=== PATIENT | female | born 1990 | race Hispanic/Latino ===

== ENCOUNTER 2019-06-30 13:10 | Emergency (ER) | payer MEDICAID ==
--- NOTE | 2019-06-30 13:47 | Event Note ---
ED Screening Note ED Screening Note: This initial assessment/diagnostic orders/clinical plan/treatment(s) is/are subject to change based on patients health status, clinical progression and re- assessment by fellow clinical providers in the ED. Further treatment and workup at subsequent clinical providers discretion. Patient/guardian urged not to elope from the ED as their condition may be serious if not clinically assessed and managed. Initial orders include: 28 yo female states that she has intermittent abdominal pain for 2 weeks. She verbalizes that she took a urine test that was positive and that she had a miscarriage on Feb 26, 2019.
[2019-06-30 14:34] LABS: Bacteria,Urine 1+ /HPF (Negative); Bilirubin,Urine NEG (Negative); Blood,Urine NEG (Negative); Color,Urine Amber (Yellow); Mucus,Urine 3+ /HPF; Urobilinogen,Urine < 2.0 mg/dL (<2.0)
[2019-06-30] MEDS ORDERED: SODIUM CHLORIDE 0.9% 1000 ML 1,000 ML IV ONE (15:17)
[2019-06-30] MEDS ORDERED: cefTRIAXone/NS 1 GM/50 ML 1 GM/50 ML BAG IV ONE (15:17)
--- NOTE | 2019-06-30 15:18 | Emergency Department Report ---
Vomiting/Diarrhea - HPI Chief Complaint: Abdominal Pain Stated Complaint: LOWER ABD PAIN/N/V Time Seen by Provider: 06/30/19 14:01 Severity: mild Nausea/Vomiting Severity: Mild Diarrhea Severity: Mild Pain Severity: Mild Symptoms: Yes Able to Tolerate Fluids, No Watery Diarrhea, No Bloody diarrhea, No Fever, No Recent Unusual Foods, No Recent Untreated Water, No Recent use of Antibiotics, No Family w/ Similar Symptoms, No Contacts w/ Similar Symptoms, No Rash, No Hematuria, No Recent URI Symptoms Other History: 28 YO COMES TO ER CO N/V FOR SEVERAL DAYS. SHE TOOK 8 PREG TESTS AND ALL WERE POS; SHE COMES TO ER THINKING SHE IS PREG. NO VAG BLEED OR DC. NO PRIOR ED Review of Systems ROS: Stated complaint: LOWER ABD PAIN/N/V Other details as noted in HPI Comment: All other systems reviewed and negative ED Past Medical Hx - Past Medical History Previous Medical History?: Yes Additional medical history: PTSD, bipolar, depression anxiety - Surgical History Past Surgical History?: Yes Additional Surgical History: eye,, foot, gallbladder removal - Family History Family history: no significant - Social History Smoking Status: Current Every Day Smoker - Medications Home Medications: Home Medications Medication Instructions Recorded Confirmed Last Taken Type Nitrofurantoin Hall/M-Cryst 100 mg PO Q12HR #10 capsule 06/30/19 Unknown Rx [Macrobid CAP] Ondansetron [Zofran Odt] 4 mg PO Q8HR PRN #10 tab.rapdis 06/30/19 Unknown Rx Vomiting Diarrhea Exam - Exam General: Vital signs noted. No distress. Alert and acting appropriately. HEENT: No Pharyngeal Erythema, No Pharyngeal Exudates Neck: Yes Adenopathy Lungs: Yes Clear Lung Sounds Heart exam: Regular: Yes, Murmur: No, Tachycardia: No Abdomen: Tenderness: No, Peritoneal Signs: No, Distention: No, Hyperactive Bowel sounds: No Skin exam: Rash: No, Edema: No, Normal turgor: Yes Neurologic: Alert and oriented, no deficits. Musculoskeletal: Unremarkable. ED Course Vital Signs 06/30/19 13:22 Temperature 98.2 F Pulse Rate 60 Respiratory 18 Rate Blood Pressure 109/54 [Left] O2 Sat by Pulse 99 Oximetry ED Medical Decision Making - Lab Data Result diagrams: 06/30/19 15:11 06/30/19 15:11 - Radiology Data Radiology results: report reviewed, image reviewed - Medical Decision Making Vital Signs 06/30/19 13:22 Temperature 98.2 F Pulse Rate 60 Respiratory 18 Rate Blood Pressure 109/54 [Left] O2 Sat by Pulse 99 Oximetry Lab Results 06/30/19 06/30/19 06/30/19 Range/Units 15:11 15:11 15:11 WBC 8.5 (4.5-11.0) K/mm3 RBC 4.14 (3.65-5.03) M/mm3 Hgb 13.1 (10.1-14.3) gm/dl Hct 38.4 (30.3-42.9) % MCV 93 (79-97) fl MCH 32 (28-32) pg MCHC 34 (30-34) % RDW 12.9 L (13.2-15.2) % Plt Count 197 (140-440) K/mm3 Lymph % (Auto) 23.4 (13.4-35.0) % Hall % (Auto) 6.6 (0.0-7.3) % Eos % (Auto) 0.6 (0.0-4.3) % Baso % (Auto) 0.5 (0.0-1.8) % Lymph # 2.1 (1.2-5.4) K/mm3 Hall # 0.6 (0.0-0.8) K/mm3 Eos # 0.0 (0.0-0.4) K/mm3 Baso # 0.0 (0.0-0.1) K/mm3 Seg Neutrophils % 68.9 (40.0-70.0) % Seg Neutrophils # 6.1 (1.8-7.7) K/mm3 Sodium 137 (137-145) mmol/L Potassium 4.2 (3.6-5.0) mmol/L Chloride 102.9 (98-107) mmol/L Carbon Dioxide 21 L (22-30) mmol/L Anion Gap 17 mmol/L BUN 7 (7-17) mg/dL Creatinine 0.5 L (0.7-1.2) mg/dL Estimated GFR > 60 ml/min BUN/Creatinine Ratio 14 % Glucose 87 (65-100) mg/dL Calcium 9.1 (8.4-10.2) mg/dL Total Bilirubin 0.40 (0.1-1.2) mg/dL AST 14 (5-40) units/L ALT 11 (7-56) units/L Alkaline Phosphatase 56 (35-129) units/L Total Protein 7.1 (6.3-8.2) g/dL Albumin 4.4 (3.9-5) g/dL Albumin/Globulin Ratio 1.6 % Lipase 13 (13-60) units/L HCG, Quant [id number] H (0-4) mIU/mL Urine Color (Yellow) Urine Turbidity (Clear) Urine pH (5.0-7.0) Ur Specific [place] (1.003-1.030) Urine Protein (Negative) mg/dL Urine Glucose (UA) (Negative) mg/dL Urine Ketones (Negative) mg/dL Urine Blood (Negative) Urine Nitrite (Negative) Urine Bilirubin (Negative) Urine Urobilinogen (<2.0) mg/dL Ur Leukocyte Esterase (Negative) Urine WBC (Auto) (0.0-6.0) /HPF Urine RBC (Auto) (0.0-6.0) /HPF U Epithel Cells (Auto) (0-13.0) /HPF Urine Bacteria (Auto) (Negative) /HPF Urine Mucus /HPF 06/30/19 Range/Units Unknown WBC (4.5-11.0) K/mm3 RBC (3.65-5.03) M/mm3 Hgb (10.1-14.3) gm/dl Hct (30.3-42.9) % MCV (79-97) fl MCH (28-32) pg MCHC (30-34) % RDW (13.2-15.2) % Plt Count (140-440) K/mm3 Lymph % (Auto) (13.4-35.0) % Hall % (Auto) (0.0-7.3) % Eos % (Auto) (0.0-4.3) % Baso % (Auto) (0.0-1.8) % Lymph # (1.2-5.4) K/mm3 Hall # (0.0-0.8) K/mm3 Eos # (0.0-0.4) K/mm3 Baso # (0.0-0.1) K/mm3 Seg Neutrophils % (40.0-70.0) % Seg Neutrophils # (1.8-7.7) K/mm3 Sodium (137-145) mmol/L Potassium (3.6-5.0) mmol/L Chloride (98-107) mmol/L Carbon Dioxide (22-30) mmol/L Anion Gap mmol/L BUN (7-17) mg/dL Creatinine (0.7-1.2) mg/dL Estimated GFR ml/min BUN/Creatinine Ratio % Glucose (65-100) mg/dL Calcium (8.4-10.2) mg/dL Total Bilirubin (0.1-1.2) mg/dL AST (5-40) units/L ALT (7-56) units/L Alkaline Phosphatase (35-129) units/L Total Protein (6.3-8.2) g/dL Albumin (3.9-5) g/dL Albumin/Globulin Ratio % Lipase (13-60) units/L HCG, Quant (0-4) mIU/mL Urine Color Yen (Yellow) Urine Turbidity Slightly-cloudy (Clear) Urine pH 5.0 (5.0-7.0) Ur Specific [place] 1.038 H (1.003-1.030) Urine Protein 100 mg/dl (Negative) mg/dL Urine Glucose (UA) Neg (Negative) mg/dL Urine Ketones Neg (Negative) mg/dL Urine Blood Neg (Negative) Urine Nitrite Neg (Negative) Urine Bilirubin Neg (Negative) Urine Urobilinogen < 2.0 (<2.0) mg/dL Ur Leukocyte Esterase Mod (Negative) Urine WBC (Auto) 25.0 H (0.0-6.0) /HPF Urine RBC (Auto) 11.0 (0.0-6.0) /HPF U Epithel Cells (Auto) 7.0 (0-13.0) /HPF Urine Bacteria (Auto) 1+ (Negative) /HPF Urine Mucus 3+ /HPF UA NOTED PREG POS TREATED FOR UTI IN ER US NOTED VSS TAKING PO NON ILL APPEARING NO VAG BLEEDING OR DC DC HOME WITH DC PLAN OF CARE AND OB FOLLOW UP. - Differential Diagnosis RO PREG/UTI Critical care attestation.: If time is entered above; I have spent that time in minutes in the direct care of this critically ill patient, excluding procedure time. ED Disposition Clinical Impression: , UTI (urinary tract infection) Disposition: DC-01 TO HOME OR SELFCARE Is pt being admited?: No Does the pt Need Aspirin: No Condition: Stable Instructions: (ED), Urinary Tract Infection in Women (ED) Additional Instructions: NO DRUGS NO ALCOHOL NO CIG. OVER THE COUNTER VITAMIN DAILY FOLLOW UP WITH OBGYN HECTOR REFERRAL BELOW DRINK A LOT OF WATER MED ORDERED TODAY 8W 2D ESTIMATED HCG [id number] TYLENOL IS ALL YOU CAN HAVE FOR PAIN Prescriptions: Nitrofurantoin Hall/M-Cryst [Macrobid CAP] 100 mg PO Q12HR #10 capsule Ondansetron [Zofran Odt] 4 mg PO Q8HR PRN #10 tab.rapdis PRN Reason: Vomiting Referrals: SUDHA COLON MD [Staff Physician] - 3-5 Days Time of Disposition: 17:56
[2019-06-30 15:29] LABS: Hematocrit 38.4 % (30.3-42.9); Hemoglobin 13.1 gm/dl (10.1-14.3); Mean Corpuscular HGB Conc 34 % (30-34); Mean Corpuscular Volume 93 fl (79-97); Platelet Count 197 K/mm3 (140-440); Red Blood Count 4.14 M/mm3 (3.65-5.03); Red Cell Distribution Width 12.9 % (13.2-15.2)
[2019-06-30 15:49] LABS: Alanine Aminotransferase 11 units/L (7-56); Albumin 4.4 g/dL (3.9-5); BUN/Creatinine Ratio 14; Basophils % (Auto) 0.5 % (0.0-1.8); Blood Urea Nitrogen 7 mg/dL (7-17); Calcium 9.1 mg/dL (8.4-10.2); Eosinophils % (Auto) 0.6 % (0.0-4.3); Hemolysis Index 7; Lymphocytes # (Auto) 2.1 K/mm3 (1.2-5.4); Lymphocytes % (Auto) 23.4 % (13.4-35.0); Monocytes # (Auto) 0.6 K/mm3 (0.0-0.8); Monocytes % (Auto) 6.6 % (0.0-7.3)
[2019-06-30] MEDS ORDERED: ONDANSETRON 4 MG/2 ML INJ IV ONE (17:09)
[2019-06-30] MEDS ORDERED: ACETAMINOPHEN 500 MG TAB PO ONE (17:09)
--- NOTE | 2019-06-30 17:45 | Ultrasound Report ---
Early obstetrical ultrasound INDICATION: Early , abdominal pain COMPARISON: None TECHNIQUE: Transabdominal and endovaginal A fundal intrauterine is noted. pole and yolk sac are identified. Estimated gestation al age by crown-rump length is 8 weeks 2 days. By measured sac size estimated gestational age is 11 w eeks 2 days but the sac is elongated significantly and likely this is not an accurate assessment of a ge. cardiac activity is noted with heart rate of 166 bpm. No obvious implantational bleed is seen. No significant abnormalities are seen at this early stage of . Right ovary measures 2.6 cm in length and shows a 13 mm simple cyst. Left ovary measures 2.3 cm in le ngth and shows no abnormalities. No free fluid is seen. IMPRESSION: Viable appearing early intrauterine without obvious abnormality. Signer Name: Stan Hughes MD Signed: 06/30/2019 5:41 PM Workstation Name: [id number]
[2019-06-30 18:20] VITALS: BP 110/60
[2019-06-30 19:03] LABS: Basophils % (Manual) 0 % (0.0-1.8); Eosinophils % (Manual) 0 % (0.0-4.3); Total Cells Counted 100
[2019-06-30 19:04] LABS: Large Platelets 1+; RBC Morphology Normal
[2019-06-30 19:05] LABS: Platelet Estimate Consistent w Auto
== END 2019-06-30 18:19 | disposition home or self-care (01) ==
LOC: ED 13:10
DX: O23.41 Unspecified infection of urinary tract in pregnancy, first trimester (principal); O99.332 Smoking (tobacco) complicating pregnancy, second trimester; O99.341 Other mental disorders complicating pregnancy, first trimester; F31.9 Bipolar disorder, unspecified; Z3A.01 Less than 8 weeks gestation of pregnancy; F43.10 Post-traumatic stress disorder, unspecified; Z88.1 Allergy status to other antibiotic agents; Z91.040 Latex allergy status; Z98.890 Other specified postprocedural states
CPT/HCPCS: 36415; 76801; 80053; 81001; 83690; 84702; 85007; 85025; 87086; 96361; 96365; 96375; 99284; J0696; J2405; J7030